=== PATIENT | male | born 1980 | race Two or more races ===

== ENCOUNTER 2019-07-29 07:49 | Outpatient (CLI) | payer OTHER ==
[2019-07-29] MEDS ORDERED: GADOTERATE 10 MMOL/20 ML VIAL ONE (09:49)
== END 2019-07-29 23:59 | disposition home or self-care (01) ==
LOC: RAD 07:49
PROVIDERS: ATTEND Physician Assistant Medical
DX: J32.0 Chronic maxillary sinusitis (principal)
CPT/HCPCS: 70553; A9575